=== PATIENT | female | born 1995 | race Caucasian/White ===

== ENCOUNTER 2016-08-03 02:10 | Emergency (ER) | payer OTHER ==
[~2016-08-03] VITALS: Ht 157.5 cm; Wt 63.5 kg
[2016-08-03 02:16] VITALS: BP 124/65
--- NOTE | 2016-08-03 02:25 | NUR ---
20Y F BIB [facility]ILY C/O BACK AND AB PAIN X 2 DAYS 10/ PAIN. PT STATES PAIN IS LOCATED AT LEFT SIDE OF BACK RADIATED TO LEFT FLANK. PT DENIES ANY N/V/D/, CP, SOB AT THE MOMENT. PT IS AAOX 4. PT DENIES ANY MEDICAL HX BESIDED AND NKA
--- NOTE | 2016-08-03 02:25 | NUR ---
PATIENT AMBULATED TO ER BED 8.
[2016-08-03] MEDS ORDERED: NACL 0.9% 500 ML IV ONE (02:34)
--- NOTE | 2016-08-03 02:34 | NUR ---
PATIENT BEING EVALUATED BY DR. SLOAN.
[2016-08-03] MEDS ORDERED: LEVOFLOXACIN 500 MG/D5W PREMIX 100 ML IV ONE (02:35)
[2016-08-03] MEDS ORDERED: KETOROLAC 30 MG/ML VIAL IVP ONE (02:35)
[2016-08-03] MEDS ORDERED: ONDANSETRON 4 MG/2 ML VIAL IVP ONE (02:35)
[2016-08-03] MEDS ORDERED: MORPHINE SULFATE 2 MG/ML SYR IVP ONE (03:20)
--- NOTE | 2016-08-03 04:16 | NUR ---
IV removed, catheter intact and site benign. Applied folded 4x4 gauze and tape to stop bleeding.
[2016-08-03 04:17] VITALS: BP 127/71
--- NOTE | 2016-08-03 04:17 | NUR ---
Patient discharged with v/s stable. Written and verbal after care instructions given and explained. Patient alert, oriented and verbalized understanding of instructions. Ambulatory with steady gait. All questions addressed prior to discharge. ID band removed. Patient advised to follow up with PMD. Rx of MOTRIN 800MG, MACROBID, ULTRAM 50MG given. Patient educated on indication of medication including possible reaction and side effects. Opportunity to ask questions provided and answered.
== END 2016-08-03 04:17 | disposition home or self-care (01) ==
LOC: MED 02:10
DX: S29.012A Strain of muscle and tendon of back wall of thorax, initial encounter (principal); N39.0 Urinary tract infection, site not specified; X58.XXXA Exposure to other specified factors, initial encounter; Y93.89 Activity, other specified; Y92.89 Other specified places as the place of occurrence of the external cause; Y99.8 Other external cause status; R03.0 Elevated blood-pressure reading, without diagnosis of hypertension; N20.0 Calculus of kidney
CPT/HCPCS: 74176; 81025; 96365; 96375; 99284; J1885; J1956; J2270; J2405; J7030